=== PATIENT | female | born 1955 | race Caucasian/White ===

== ENCOUNTER 2019-09-07 09:07 | Emergency (ER) | payer OTHER ==
[~2019-09-07] VITALS: Ht 180.3 cm; Wt 101.0 kg
[2019-09-07] MEDS ORDERED: GABA300C10 PO (09:33)
[2019-09-07] MEDS ORDERED: IBUP-1223 PO (09:33)
[2019-09-07] MEDS ORDERED: KETOROLAC 30 MG/1 ML ONE (09:35)
--- NOTE | 2019-09-07 09:56 | NUR ---
URINE COLLECTED/SENT TO LAB. PT IN IMAGING
[2019-09-07] MEDS ORDERED: KETOROLAC 30 MG/1 ML IM ONE (10:00)
[2019-09-07 10:15] LABS: MICROSCOPIC NOT IND
[2019-09-07 10:17] LABS: CULTURE INDICATED? NO
[2019-09-07 10:53] VITALS: BP 121/64
== END 2019-09-07 10:55 | disposition home or self-care (01) ==
LOC: ED 09:17
DX: M51.36 Other intervertebral disc degeneration, lumbar region (principal); M54.5 Low back pain; Z88.0 Allergy status to penicillin
CPT/HCPCS: 72110; 81003; 96372; 99284; J1885

== ENCOUNTER 2020-05-06 10:48 | Emergency (ER) | payer OTHER ==
[~2020-05-06] VITALS: Ht 180.3 cm; Wt 99.2 kg
[~2020-05-06 10:48] MED LIST: GABA300C10 PO; IBUP-1223 PO
[2020-05-06 10:59] VITALS: BP 146/92
[2020-05-06] MEDS ORDERED: KETOROLAC 30 MG/1 ML IM ONE (12:00)
[2020-05-06] MEDS ORDERED: KETOROLAC 60 MG/2 ML ONE (12:19)
--- NOTE | 2020-05-06 12:28 | NUR ---
LUNCH BREAK NOTE: PT MEDICATED PER EMAR AND CHECKED IN FOR PRIMNARY IRENE DAVIS.
--- NOTE | 2020-05-06 12:49 | NUR ---
Patient/Caregiver given discharge instructions and they have confirmed that they understand the instructions. Patient ambulatory with steady gait.
== END 2020-05-06 13:14 | disposition home or self-care (01) ==
LOC: ED 11:37
DX: J00 Acute nasopharyngitis [common cold] (principal); Z20.828 Contact with and (suspected) exposure to other viral communicable diseases; R05 Cough; R51 Headache; F17.200 Nicotine dependence, unspecified, uncomplicated
CPT/HCPCS: 36415; 71045; 87635; 96372; 99284; J1885

== ENCOUNTER 2020-12-29 09:26 | Emergency (ER) | payer BC, OTHER ==
[~2020-12-29] VITALS: Ht 180.3 cm; Wt 98.2 kg
[2020-12-29 10:05] LABS: MEAN CORPUSCULAR HEMOGLOBIN 31.2 pg (27.0-34.8); MEAN CORPUSCULAR HGB CONC 34.3 g/dL (32.4-35.8); MEAN PLATELET VOLUME 11.3 fL (7.4-10.4); PLATELET COUNT 105 x10^3/uL (130-400); RED CELL DISTRIBUTION WIDTH 14.2 % (9.6-15.2)
[2020-12-29 10:17] LABS: ALANINE AMINOTRANSFERASE 99 U/L (12-78); ALBUMIN 3.3 g/dL (3.4-5.0); ANION GAP 10 mmol/L (5-15); CHLORIDE 111 mmol/L (98-107); CREATININE 0.82 mg/dL (0.55-1.02)
[2020-12-29 10:19] LABS: ALKALINE PHOSPHATASE 320 U/L (45-117); BILIRUBIN,TOTAL 3.3 mg/dL (0.2-1.0); TOTAL PROTEIN 6.5 g/dL (6.4-8.2)
[2020-12-29 10:31] LABS: MD YES
[2020-12-29 10:37] LABS: BASOS#(MANUAL) 0.11 x10^3/uL (0-0.1); BASOS% (MANUAL) 2 % (0-1); EOS#(MANUAL) 0.11 x10^3/uL (0.0-0.4); EOS% (MANUAL) 2 % (1-7); LYMPH#(MANUAL) 1.96 x10^3/uL (1-3.4); LYMPHS% (MANUAL) 37 % (22-44); MONOS#(MANUAL) 0.32 x10^3/uL (0.3-2.7); MONOS% (MANUAL) 6 % (2-9); REACTIVE LYMPHS # (MANUAL) 0.37 x10^3/uL (0-0); REACTIVE LYMPHS % (MANUAL) 7 % (0-0); SEG#(MANUAL) 2.44 x10^3/uL (1.8-6.8); SEGS% (MANUAL) 46 % (42-75)
[2020-12-29 10:38] LABS: <PLATELET ESTIMATE> DECREASED; <RBC MORPHOLOGY> NORMAL; LARGE PLATELETS 1+
[2020-12-29 10:44] LABS: MICROSCOPIC INDICATED
[2020-12-29] MEDS ORDERED: DIPHENHYDRAMINE 50 MG/ML, 1ML IM ONE (11:00)
[2020-12-29] MEDS ORDERED: DIPHENHYDRAMINE 50 MG/ML, 1ML ONE (11:37)
[2020-12-29 11:43] VITALS: BP 143/79
--- NOTE | 2020-12-29 12:25 | NUR ---
Patient given discharge instructions and Rx, they have confirmed that they understand the instructions. Patient ambulatory with steady gait.
== END 2020-12-29 12:27 | disposition home or self-care (01) ==
LOC: ED 12:10
DX: K80.20 Calculus of gallbladder without cholecystitis without obstruction (principal); K70.30 Alcoholic cirrhosis of liver without ascites; L29.9 Pruritus, unspecified; F17.210 Nicotine dependence, cigarettes, uncomplicated; Z90.710 Acquired absence of both cervix and uterus; Z90.89 Acquired absence of other organs
CPT/HCPCS: 36415; 76700; 80053; 81001; 83690; 85025; 87086; 96372; 99284; 99406; J1200